=== PATIENT | female | born 1975 | race Hispanic/Latino ===

== ENCOUNTER 2021-06-09 11:58 | Emergency (ER) | payer MEDICARE ==
[2021-06-09 12:59] LABS: #Eosinphils 0.1 10x3/uL (0.0-0.5); #Monocytes 0.4 10x3/uL (0.0-1.1); #Neutrophils 4.9 10x3/uL (1.5-8.4); %Basophils 0.6 % (0.0-2.0); %Eosinophils 1.7 % (0.0-6.0); %Lymphocytes 24.9 % (18.0-47.0); %Monocytes 4.8 % (0.0-10.0); %Neutrophils 67.9 % (40.0-75.0); Hemoglobin 10.3 g/dL (12.0-15.5); Mean Corpuscular HGB CONC 31.8 g/dL (32.0-36.0); Mean Corpuscular Hemoglobin 31.7 pg (27.0-33.0); Mean Corpuscular Volume 99.7 fl (81.6-98.3); Mean Platelet Volume 11.3 fl (7.4-10.4); Platelet Count 204 10x3/uL (150-450); Red Blood Cell (RBC) Count 3.25 10x6/uL (3.90-5.03); White Blood Cell (WBC) Count 7.2 10x3/uL (3.5-10.5)
[2021-06-09 13:08] LABS: ALT (SGPT) 76 U/L (8-55); AST (SGOT) 119 U/L (5-34); Albumin 4.2 g/dL (3.5-5.0); Alkaline Phosphatase 177 U/L (40-110); Anion Gap 19 mmol/L (10-20); BUN (Urea Nitrogen) 49 mg/dL (7.0-18.7); Bilirubin, Total 0.4 mg/dL (0.2-1.2); Calc. Creatinine Clearance 0 mL/min (70-130); Calcium 7.9 mg/dL (7.8-10.44); Carbon Dioxide 19 mmol/L (22-29); Chloride 104 mmol/L (98-107); Globulin 3.2 g/dL (2.4-3.5); Glucose 158 mg/dL (70-105); Potassium 5.1 mmol/L (3.5-5.1); Protein, Total 7.4 g/dL (6.0-8.3); Sodium 137 mmol/L (136-145)
== END 2021-06-09 15:24 | disposition left against medical advice (07) ==
LOC: CSHERS 11:58
DX: I95.9 Hypotension, unspecified (principal); E11.9 Type 2 diabetes mellitus without complications; I25.2 Old myocardial infarction; I48.91 Unspecified atrial fibrillation; K21.9 Gastro-esophageal reflux disease without esophagitis; I10 Essential (primary) hypertension; Z79.899 Other long term (current) drug therapy
CPT/HCPCS: 71045; 80053; 83605; 85025; 87040; 93005

== ENCOUNTER 2021-09-28 14:32 | Emergency (ER) | payer MEDICARE ==
[2021-09-28 16:27] LABS: #Eosinphils 0.1 10x3/uL (0.0-0.5); #Monocytes 0.7 10x3/uL (0.0-1.1); #Neutrophils 9.3 10x3/uL (1.5-8.4); %Basophils 0.3 % (0.0-2.0); %Eosinophils 0.7 % (0.0-6.0); %Lymphocytes 16.4 % (18.0-47.0); %Monocytes 5.6 % (0.0-10.0); %Neutrophils 76.8 % (40.0-75.0); Hemoglobin 10.5 g/dL (12.0-15.5); Mean Corpuscular HGB CONC 31.5 g/dL (32.0-36.0); Mean Corpuscular Volume 101.5 fl (81.6-98.3); Mean Platelet Volume 10.6 fl (7.4-10.4); Platelet Count 197 10x3/uL (150-450); RBC Distribution Width 13.6 % (11.5-14.5); Red Blood Cell (RBC) Count 3.28 10x6/uL (3.90-5.03); White Blood Cell (WBC) Count 12.2 10x3/uL (3.5-10.5)
[2021-09-28 16:39] LABS: ALT (SGPT) 22 U/L (8-55); AST (SGOT) 22 U/L (5-34); Albumin 4.3 g/dL (3.5-5.0); Alkaline Phosphatase 113 U/L (40-110); Anion Gap 20 mmol/L (10-20); BUN (Urea Nitrogen) 35 mg/dL (7.0-18.7); Bilirubin, Total 0.4 mg/dL (0.2-1.2); Calc. Creatinine Clearance 0 mL/min (70-130); Calcium 8.3 mg/dL (7.8-10.44); Carbon Dioxide 24 mmol/L (22-29); Chloride 97 mmol/L (98-107); Globulin 3.4 g/dL (2.4-3.5); Glucose 116 mg/dL (70-105); Potassium 5.6 mmol/L (3.5-5.1); Protein, Total 7.7 g/dL (6.0-8.3); Sodium 135 mmol/L (136-145)
[2021-09-28] MEDS ORDERED: Morphine 4 MG/ML VIAL ONE ×3 (16:39→16:42)
== END 2021-09-28 18:22 | disposition home or self-care (01) ==
LOC: CSHERS 14:32
DX: K04.7 Periapical abscess without sinus (principal); E11.621 Type 2 diabetes mellitus with foot ulcer; N18.6 End stage renal disease; I12.0 Hypertensive chronic kidney disease with stage 5 chronic kidney disease or end stage renal disease; K21.9 Gastro-esophageal reflux disease without esophagitis; I25.2 Old myocardial infarction; I48.91 Unspecified atrial fibrillation; Z86.73 Personal history of transient ischemic attack (TIA), and cerebral infarction without residual deficits; Z99.2 Dependence on renal dialysis
CPT/HCPCS: 36415; 80053; 83605; 85025; 86140; 93005; 96374; J2270

== ENCOUNTER 2022-01-26 18:52 | Inpatient (IN) | payer MEDICARE ==
[2022-01-26 19:38] LABS: #Monocytes 0.3 10x3/uL (0.0-1.1); #Neutrophils 4.4 10x3/uL (1.5-8.4); %Basophils 0.6 % (0.0-2.0); %Eosinophils 0.6 % (0.0-6.0); %Lymphocytes 8.1 % (18.0-47.0); %Monocytes 6.2 % (0.0-10.0); %Neutrophils 84.1 % (40.0-75.0); Hemoglobin 10.8 g/dL (12.0-15.5); Mean Corpuscular Hemoglobin 30.4 pg (27.0-33.0); Mean Corpuscular Volume 95.2 fl (81.6-98.3); Mean Platelet Volume 10.9 fl (7.4-10.4); Platelet Count 183 10x3/uL (150-450); RBC Distribution Width 15.6 % (11.5-14.5); Red Blood Cell (RBC) Count 3.55 10x6/uL (3.90-5.03); White Blood Cell (WBC) Count 5.2 10x3/uL (3.5-10.5)
[2022-01-26 19:52] LABS: ALT (SGPT) 17 U/L (8-55); AST (SGOT) 27 U/L (5-34); Alkaline Phosphatase 296 U/L (40-110); Anion Gap 16 mmol/L (10-20); BUN (Urea Nitrogen) 14 mg/dL (7.0-18.7); Bilirubin, Total 0.7 mg/dL (0.2-1.2); Calc. Creatinine Clearance 0 mL/min (70-130); Calcium 9.1 mg/dL (7.8-10.44); Carbon Dioxide 30 mmol/L (22-29); Chloride 95 mmol/L (98-107); Globulin 3.9 g/dL (2.4-3.5); Glucose 94 mg/dL (70-105); Potassium 5.1 mmol/L (3.5-5.1); Protein, Total 7.9 g/dL (6.0-8.3); Sodium 136 mmol/L (136-145)
[2022-01-26 20:08] LABS: Bilirubin Neg (Negative); Blood, Urine Negative (Negative); Clarity Clear (Clear); Glucose, Urine (Dipstick) Normal (Negative); Ketone, Urine Negative (Negative); Leukocyte 25 (Negative); Nitrite Negative (Negative); Protein, Urine (Dipstick) 500 mg/dl (Neg-Trace); Urobilinogen Normal mg/dL (Less than 2)
[2022-01-26] MEDS ORDERED: Acetaminophen 500 MG TAB ONE (20:18)
[2022-01-26] MEDS ORDERED: Piperacillin/Tazobactam 3.375 GM VIAL ONE (20:18)
[2022-01-26 20:25] LABS: Bacteria/HPF 4+ HPF (None Seen); RBC/HPF None Seen HPF (0-3)
[2022-01-26 20:56] LABS: SARS-CoV-2 NAA Rapid Test DETECTED (NotDetected)
[2022-01-26] MEDS ORDERED: Acetaminophen 325 MG TAB PO PRN (22:22)
[2022-01-26] MEDS ORDERED: Dextrose 50% Abboject 50 ML SYRINGE SLOW IVP PRN (22:22)
[2022-01-26] MEDS ORDERED: HumaLOG 300 UNITS/3 ML VIAL SC PRN (22:22)
[2022-01-26] MEDS ORDERED: Dextrose 5% in Water 1,000 ML IV PRN (22:22)
[2022-01-26] MEDS ORDERED: Calcium Carbonate 500 MG ChewTAB PO PRN (22:22)
[2022-01-26] MEDS ORDERED: Senokot S 8.6-50 MG TAB PO PRN (22:22)
[2022-01-26] MEDS ORDERED: Guaifenesin DM 100-10/5 ML UDCUP PO PRN (22:22)
[2022-01-26] MEDS ORDERED: Ondansetron PF 4 MG/2 ML Vial IVP PRN (22:22)
[2022-01-26] MEDS ORDERED: traZODone HCl 50 MG TAB PO PRN (22:27)
[2022-01-26] MEDS ORDERED: hydrALAZINE 20 MG/ML VIAL ONE (22:38)
[2022-01-26] MEDS ORDERED: hydrALAZINE 20 MG/ML VIAL SLOW IVP PRN (22:49)
[2022-01-27] MEDS ORDERED: hydrALAZINE 20 MG/ML VIAL ONE ×4 (00:08→05:22)
[2022-01-27] MEDS ORDERED: Ibuprofen 200 MG TAB ONE (00:10)
[2022-01-27] MEDS ORDERED: Nitroglycerin 2% Ointment 1 INCH/1 GM Packet ONE (02:15)
[2022-01-27 05:48] LABS: #Monocytes 0.3 10x3/uL (0.0-1.1); %Basophils 0.5 % (0.0-2.0); %Eosinophils 0.2 % (0.0-6.0); %Lymphocytes 22.5 % (18.0-47.0); %Monocytes 7.7 % (0.0-10.0); %Neutrophils 68.9 % (40.0-75.0); Hemoglobin 9.9 g/dL (12.0-15.5); Mean Corpuscular HGB CONC 32.9 g/dL (32.0-36.0); Mean Corpuscular Volume 94.4 fl (81.6-98.3); Mean Platelet Volume 10.9 fl (7.4-10.4); Platelet Count 149 10x3/uL (150-450); RBC Distribution Width 15.9 % (11.5-14.5); Red Blood Cell (RBC) Count 3.19 10x6/uL (3.90-5.03); White Blood Cell (WBC) Count 4.3 10x3/uL (3.5-10.5)
[2022-01-27] MEDS ORDERED: Labetalol HCl 100 MG/20 ML VIAL ONE (05:53)
[2022-01-27 06:00] LABS: Anion Gap 19 mmol/L (10-20); BUN (Urea Nitrogen) 20 mg/dL (7.0-18.7); Calc. Creatinine Clearance 0 mL/min (70-130); Calcium 8.5 mg/dL (7.8-10.44); Carbon Dioxide 27 mmol/L (22-29); Chloride 97 mmol/L (98-107); Glucose 92 mg/dL (70-105); Potassium 4.7 mmol/L (3.5-5.1); Sodium 138 mmol/L (136-145)
[2022-01-27] MEDS ORDERED: Acetaminophen 500 MG TAB ONE (06:11)
[2022-01-27] MEDS ORDERED: Aspirin Chewable 81 MG TAB ONE (08:24)
[2022-01-27] MEDS ORDERED: Clopidogrel Bisulfate 75 MG TAB ONE (08:24)
[2022-01-27] MEDS ORDERED: Carvedilol 25 MG TAB ONE (08:26)
[2022-01-27] MEDS ORDERED: Famotidine 20 MG TAB ONE (08:26)
[2022-01-27] MEDS: Carvedilol 25 MG TAB PO SCH ×2 (08:29→16:00)
[2022-01-27] MEDS: Escitalopram Oxalate 20 mg Tablet PO SCH (08:37)
[2022-01-27] MEDS: Clopidogrel Bisulfate 75 MG TAB PO SCH (08:37)
[2022-01-27] MEDS: Aspirin Chewable 81 MG TAB PO SCH (08:37)
[2022-01-27] MEDS: Famotidine 20 MG TAB PO SCH (08:37)
[2022-01-27] MEDS: NIFEdipine XL 60 MG TAB PO SCH (08:38)
[2022-01-27] MEDS: Magnesium Oxide 250 MG TAB PO SCH ×2 (08:38→22:20)
[2022-01-27] MEDS ORDERED: Cefepime 1 GM in Sodium Chloride 0.9% 100 ML IVPB SCH (09:00)
[2022-01-27] MEDS ORDERED: Cefepime 1 GM VIAL ONE (09:29)
[2022-01-27] MEDS ORDERED: Vancomycin Dialysis Sliding Scale (Wt > 99) FS SCH (10:30)
[2022-01-27] MEDS ORDERED: Labetalol HCl 100 MG/20 ML VIAL SLOW IVP PRN (10:50)
[2022-01-27] MEDS ORDERED: Amlodipine 5 MG TAB ONE (10:50)
[2022-01-27] MEDS ORDERED: hydrALAZINE 25 MG TAB ONE (10:51)
[2022-01-27] MEDS ORDERED: hydrALAZINE 20 MG/ML VIAL SLOW IVP PRN (10:51)
[2022-01-27] MEDS: hydrALAZINE 25 MG TAB PO SCH ×3 (10:53→20:37)
[2022-01-27] MEDS ORDERED: Amlodipine 5 MG TAB PO SCH (11:00)
[2022-01-27] MEDS ORDERED: Vancomycin HCl 1 GM in Sodium Chloride 0.9% 250 ML 250 ML IVPB SCH (11:30)
[2022-01-27 12:47] LABS: Hemoglobin A1c 5.2 % (4.0-6.0)
[2022-01-27] MEDS: Heparin 5,000 UNITS/ML VIAL SC SCH ×3 (14:57→20:37)
[2022-01-27 15:00] VITALS: BMI 32.3
[2022-01-27] MEDS ORDERED: Diltiazem 125 MG in Sodium Chloride 0.9% 100 ML IVPB SCH (16:15)
[2022-01-27] MEDS ORDERED: HumaLOG 300 UNITS/3 ML VIAL SC PRN (16:50)
[2022-01-27] MEDS ORDERED: Dextrose 50% Abboject 50 ML SYRINGE SLOW IVP PRN (16:50)
[2022-01-27] MEDS ORDERED: Dextrose 5% in Water 1,000 ML IV PRN (16:50)
[2022-01-27] MEDS: Atorvastatin Calcium 40 MG TAB PO SCH (20:35)
[2022-01-27] MEDS: Lantus 1000 UNITS/10 ML VIAL SC SCH (20:36)
[2022-01-27] MEDS ORDERED: tiZANidine HCl 4 MG TAB PO SCH (22:15)
[2022-01-27] MEDS ORDERED: Gabapentin 300 MG CAP PO SCH (22:15)
[2022-01-28] MEDS: Carvedilol 25 MG TAB PO SCH ×2 (06:56→16:31)
[2022-01-28 07:43] LABS: Vancomycin, Random 8.2 ug/mL (See Comment)
[2022-01-28] MEDS ORDERED: Heparin 10,000 UNITS/ 10 ML VIAL SLOW IVP PRN (08:59)
[2022-01-28] MEDS ORDERED: EPOETIN ALFA-EPBX (ESRD) 3,000 UNIT/ML VIAL IVP PRN (09:00)
[2022-01-28] MEDS ORDERED: Cefepime 0.5 GM in Sodium Chloride 0.9% 100 ML IVPB SCH (09:00)
[2022-01-28] MEDS ORDERED: EPOETIN ALFA-EPBX (ESRD) 3,000 UNIT/ML VIAL IVP SCH (09:00)
[2022-01-28] MEDS ORDERED: Lidocaine 2% Jelly 5 ML TUBE TOP SCH (13:00)
[2022-01-28] MEDS: Escitalopram Oxalate 20 mg Tablet PO SCH (13:48)
[2022-01-28] MEDS: Aspirin Chewable 81 MG TAB PO SCH (13:48)
[2022-01-28] MEDS: hydrALAZINE 25 MG TAB PO SCH ×3 (13:48→21:46)
[2022-01-28] MEDS: Gabapentin 300 MG CAP PO SCH ×3 (13:49→21:47)
[2022-01-28] MEDS: NIFEdipine XL 60 MG TAB PO SCH (13:51)
[2022-01-28] MEDS: Famotidine 20 MG TAB PO SCH (13:52)
[2022-01-28] MEDS: Clopidogrel Bisulfate 75 MG TAB PO SCH (13:52)
[2022-01-28] MEDS: Heparin 5,000 UNITS/ML VIAL SC SCH ×3 (13:53→22:23)
[2022-01-28] MEDS: Magnesium Oxide 250 MG TAB PO SCH ×2 (13:54→21:46)
[2022-01-28] MEDS: tiZANidine HCl 4 MG TAB PO SCH ×3 (13:56→21:45)
[2022-01-28] MEDS ORDERED: traZODone HCl 50 MG TAB PO PRN (14:02)
[2022-01-28] MEDS: HYDROcodone/Acetaminophen 5/325 mg Tablet PO PRN ×2 (14:53→18:55)
[2022-01-28] MEDS: Morphine 4 MG/ML VIAL SLOW IVP PRN ×2 (16:30→21:48)
[2022-01-28] MEDS: Cefepime 0.5 GM in Sodium Chloride 0.9% 100 ML IVPB SCH (16:31)
[2022-01-28] MEDS ORDERED: VANCOMYCIN 1.25 GM/250 ML BAG 1.25 GM in Premix Bag 1 BAG IVPB SCH (17:00)
[2022-01-28] MEDS: Atorvastatin Calcium 40 MG TAB PO SCH (21:46)
[2022-01-28] MEDS: Lantus 1000 UNITS/10 ML VIAL SC SCH (21:47)
[2022-01-29] MEDS: Morphine 4 MG/ML VIAL SLOW IVP PRN ×4 (03:47→21:41)
[2022-01-29] MEDS: HYDROcodone/Acetaminophen 5/325 mg Tablet PO PRN ×3 (05:02→17:49)
[2022-01-29 05:31] LABS: #Monocytes 0.3 10x3/uL (0.0-1.1); %Basophils 0.6 % (0.0-2.0); %Eosinophils 1.2 % (0.0-6.0); %Lymphocytes 30.6 % (18.0-47.0); %Monocytes 8.2 % (0.0-10.0); %Neutrophils 59.1 % (40.0-75.0); Hemoglobin 9.4 g/dL (12.0-15.5); Mean Corpuscular HGB CONC 30.8 g/dL (32.0-36.0); Mean Corpuscular Hemoglobin 30.1 pg (27.0-33.0); Mean Corpuscular Volume 97.8 fl (81.6-98.3); Mean Platelet Volume 11.4 fl (7.4-10.4); Platelet Count 166 10x3/uL (150-450); RBC Distribution Width 15.7 % (11.5-14.5); Red Blood Cell (RBC) Count 3.12 10x6/uL (3.90-5.03); White Blood Cell (WBC) Count 3.4 10x3/uL (3.5-10.5)
[2022-01-29 05:49] LABS: Anion Gap 18 mmol/L (10-20); BUN (Urea Nitrogen) 19 mg/dL (7.0-18.7); Calc. Creatinine Clearance 31 mL/min (70-130); Calcium 8.1 mg/dL (7.8-10.44); Carbon Dioxide 25 mmol/L (22-29); Chloride 95 mmol/L (98-107); Estimated GFR 15; Glucose 131 mg/dL (70-105); Magnesium 1.9 mg/dL (1.6-2.6); Potassium 4.4 mmol/L (3.5-5.1); Sodium 134 mmol/L (136-145)
[2022-01-29] MEDS: Carvedilol 25 MG TAB PO SCH ×2 (09:55→17:49)
[2022-01-29] MEDS: Gabapentin 300 MG CAP PO SCH ×3 (09:56→21:42)
[2022-01-29] MEDS: Escitalopram Oxalate 20 mg Tablet PO SCH (09:56)
[2022-01-29] MEDS: Aspirin Chewable 81 MG TAB PO SCH (09:56)
[2022-01-29] MEDS: Famotidine 20 MG TAB PO SCH (09:56)
[2022-01-29] MEDS: hydrALAZINE 25 MG TAB PO SCH ×3 (09:57→21:44)
[2022-01-29] MEDS: Magnesium Oxide 250 MG TAB PO SCH ×2 (09:57→21:42)
[2022-01-29] MEDS: Clopidogrel Bisulfate 75 MG TAB PO SCH (09:57)
[2022-01-29] MEDS: tiZANidine HCl 4 MG TAB PO SCH ×3 (09:58→21:42)
[2022-01-29] MEDS: NIFEdipine XL 60 MG TAB PO SCH (09:58)
[2022-01-29] MEDS: Heparin 5,000 UNITS/ML VIAL SC SCH ×3 (09:59→21:40)
[2022-01-29] MEDS: Cefepime 0.5 GM in Sodium Chloride 0.9% 100 ML IVPB SCH (15:32)
[2022-01-29] MEDS: Atorvastatin Calcium 40 MG TAB PO SCH (21:42)
[2022-01-29] MEDS: Lantus 1000 UNITS/10 ML VIAL SC SCH (21:44)
[2022-01-30] MEDS: HYDROcodone/Acetaminophen 5/325 mg Tablet PO PRN ×2 (02:01→07:28)
[2022-01-30 04:46] LABS: #Eosinphils 0.1 10x3/uL (0.0-0.5); #Monocytes 0.4 10x3/uL (0.0-1.1); #Neutrophils 2.7 10x3/uL (1.5-8.4); %Basophils 0.4 % (0.0-2.0); %Eosinophils 2.2 % (0.0-6.0); %Lymphocytes 33.5 % (18.0-47.0); %Neutrophils 54.5 % (40.0-75.0); Anion Gap 19 mmol/L (10-20); BUN (Urea Nitrogen) 27 mg/dL (7.0-18.7); Calc. Creatinine Clearance 25 mL/min (70-130); Carbon Dioxide 24 mmol/L (22-29); Chloride 91 mmol/L (98-107); Estimated GFR 11; Glucose 74 mg/dL (70-105); Hemoglobin 9.7 g/dL (12.0-15.5); Mean Corpuscular HGB CONC 32.4 g/dL (32.0-36.0); Mean Corpuscular Hemoglobin 30.9 pg (27.0-33.0); Mean Corpuscular Volume 95.2 fl (81.6-98.3); Mean Platelet Volume 10.6 fl (7.4-10.4); Platelet Count 179 10x3/uL (150-450); Potassium 5.8 mmol/L (3.5-5.1); RBC Distribution Width 15.2 % (11.5-14.5); Red Blood Cell (RBC) Count 3.14 10x6/uL (3.90-5.03); Sodium 128 mmol/L (136-145); White Blood Cell (WBC) Count 4.9 10x3/uL (3.5-10.5)
[2022-01-30] MEDS ORDERED: Pharmacy to Dose VANC & ABX IVPB PRN (07:22)
[2022-01-30 07:42] LABS: Vancomycin, Random 11.7 ug/mL (See Comment)
[2022-01-30] MEDS ORDERED: EPOETIN ALFA-EPBX (ESRD) 3,000 UNIT/ML VIAL IVP PRN (09:51)
[2022-01-30] MEDS ORDERED: EPOETIN ALFA-EPBX (ESRD) 4,000 UNIT/ML VIAL IVP PRN (10:00)
[2022-01-30] MEDS: hydrALAZINE 25 MG TAB PO SCH ×2 (11:22→16:13)
[2022-01-30] MEDS: NIFEdipine XL 60 MG TAB PO SCH (11:22)
[2022-01-30] MEDS: Carvedilol 25 MG TAB PO SCH ×2 (11:22→16:13)
[2022-01-30] MEDS: Heparin 5,000 UNITS/ML VIAL SC SCH ×2 (14:08→16:14)
[2022-01-30] MEDS: Escitalopram Oxalate 20 mg Tablet PO SCH (14:10)
[2022-01-30] MEDS: Aspirin Chewable 81 MG TAB PO SCH (14:10)
[2022-01-30] MEDS: Magnesium Oxide 250 MG TAB PO SCH (14:11)
[2022-01-30] MEDS: Famotidine 20 MG TAB PO SCH (14:11)
[2022-01-30] MEDS: tiZANidine HCl 4 MG TAB PO SCH ×2 (14:11→16:14)
[2022-01-30] MEDS: Gabapentin 300 MG CAP PO SCH ×2 (14:11→16:13)
[2022-01-30] MEDS: Clopidogrel Bisulfate 75 MG TAB PO SCH (14:11)
[2022-01-30] MEDS: Morphine 4 MG/ML VIAL SLOW IVP PRN (14:12)
[2022-01-30 15:01] LABS: Anion Gap 15 mmol/L (10-20); BUN (Urea Nitrogen) 14 mg/dL (7.0-18.7); Calc. Creatinine Clearance 42 mL/min (70-130); Calcium 8.6 mg/dL (7.8-10.44); Carbon Dioxide 27 mmol/L (22-29); Chloride 94 mmol/L (98-107); Estimated GFR 21; Glucose 89 mg/dL (70-105); Potassium 3.7 mmol/L (3.5-5.1); Sodium 132 mmol/L (136-145)
[2022-01-30] MEDS: Cefepime 0.5 GM in Sodium Chloride 0.9% 100 ML IVPB SCH (16:13)
[2022-01-30] MEDS ORDERED: Vancomycin HCl 1 GM in Sodium Chloride 0.9% 250 ML 250 ML IVPB SCH (17:00)
[2022-01-30 17:14] VITALS: BP 159/70; TEMP 97.9
== END 2022-01-30 17:59 | disposition home health service (06) | DRG 463 ==
LOC: CSHERS 18:52 → CSHERHOLD 23:53 → CSHTELE 01-27 13:40
PROVIDERS: ADMIT Family Medicine; ATTEND Family Medicine
PROC: 8E0ZXY6 Isolation (ICD-10-PCS; 2022-01-26)
PROC: 3E03329 Introduction of Other Anti-infective into Peripheral Vein, Percutaneous Approach (ICD-10-PCS; 2022-01-26)
PROC: 0JBN0ZZ Excision of Right Lower Leg Subcutaneous Tissue and Fascia, Open Approach (ICD-10-PCS; principal; 2022-01-28)
PROC: 5A1D70Z Performance of Urinary Filtration, Intermittent, Less than 6 Hours Per Day (ICD-10-PCS; 2022-01-28)
PROC: 5A1D70Z Performance of Urinary Filtration, Intermittent, Less than 6 Hours Per Day (ICD-10-PCS; 2022-01-30)
DX: T87.43 Infection of amputation stump, right lower extremity (principal); A41.89 Other specified sepsis; U07.1 COVID-19; N18.6 End stage renal disease; I12.0 Hypertensive chronic kidney disease with stage 5 chronic kidney disease or end stage renal disease; E87.1 Hypo-osmolality and hyponatremia; E11.22 Type 2 diabetes mellitus with diabetic chronic kidney disease; I25.10 Atherosclerotic heart disease of native coronary artery without angina pectoris; I48.0 Paroxysmal atrial fibrillation; G89.29 Other chronic pain; K21.9 Gastro-esophageal reflux disease without esophagitis; I16.0 Hypertensive urgency; Y83.8 Other surgical procedures as the cause of abnormal reaction of the patient, or of later complication, without mention of misadventure at the time of the procedure; D63.1 Anemia in chronic kidney disease; E11.42 Type 2 diabetes mellitus with diabetic polyneuropathy; E66.01 Morbid (severe) obesity due to excess calories; I25.2 Old myocardial infarction; Z88.8 Allergy status to other drugs, medicaments and biological substances; Z91.040 Latex allergy status; Z79.4 Long term (current) use of insulin; Z99.2 Dependence on renal dialysis; Z79.899 Other long term (current) drug therapy; Z95.5 Presence of coronary angioplasty implant and graft; Z90.49 Acquired absence of other specified parts of digestive tract; Z98.51 Tubal ligation status; Z87.891 Personal history of nicotine dependence; Z79.82 Long term (current) use of aspirin; Z89.511 Acquired absence of right leg below knee; Z86.73 Personal history of transient ischemic attack (TIA), and cerebral infarction without residual deficits; Z68.32 Body mass index [BMI] 32.0-32.9, adult
CPT/HCPCS: 36415; 36416; 70450; 71045; 80048; 80053; 80202; 81003; 81015; 83036; 83605; 83735; 83880; 84484; 85025; 87040; 87070; 87077; 87086; 87149; 87186; 87205; 90935; 93005; 96365; 96366; 96367; 96375; 96376; 97139; G0257; J0360; J0692; J1644; J1815; J2270; J2405; J2543; J3370; J3490; Q5105

== ENCOUNTER 2023-01-17 09:58 | Emergency (ER) | payer MEDICARE ==
[2023-01-17 11:58] LABS: #Basophils 0.1 10x3/uL (0.0-0.2); #Eosinphils 0.1 10x3/uL (0.0-0.5); #Monocytes 0.4 10x3/uL (0.0-1.1); #Neutrophils 4.9 10x3/uL (1.5-8.4); %Basophils 0.9 % (0.0-2.0); %Eosinophils 1.3 % (0.0-6.0); %Lymphocytes 22.7 % (18.0-47.0); %Monocytes 5.4 % (0.0-10.0); %Neutrophils 69.4 % (40.0-75.0); Hemoglobin 11.6 g/dL (12.0-15.5); Mean Corpuscular HGB CONC 31.1 g/dL (32.0-36.0); Mean Corpuscular Hemoglobin 31.5 pg (27.0-33.0); Mean Corpuscular Volume 101.4 fl (81.6-98.3); Mean Platelet Volume 10.6 fl (7.4-10.4); Platelet Count 241 10x3/uL (150-450); RBC Distribution Width 13.2 % (11.5-14.5); Red Blood Cell (RBC) Count 3.68 10x6/uL (3.90-5.03)
[2023-01-17 12:01] LABS: Bilirubin Neg (Negative); Blood, Urine Negative (Negative); Clarity Clear (Clear); Glucose, Urine (Dipstick) 100 mg/dL (Negative); Ketone, Urine Negative (Negative); Leukocyte 25 (Negative); Nitrite Negative (Negative); Protein, Urine (Dipstick) 100 mg/dl (Neg-Trace); Specific Gravity, Urine 1.015 (1.005-1.030); Urobilinogen Normal mg/dL (Less than 2)
[2023-01-17 12:06] LABS: PTT 26.6 sec (22.0-33.0); Prothrombin Time 10.3 sec (9.5-12.1)
[2023-01-17 12:12] LABS: CAUTI Indications for Culture Alt mental st,lethar; Squamous Epithelial 0-3 HPF (0-3)
[2023-01-17 12:13] LABS: Bacteria/HPF 1+ HPF (None Seen); RBC/HPF 0-3 HPF (0-3); Transitional Epithelial 0-3 HPF (None Seen)
[2023-01-17 12:14] LABS: Urine Culture Reflex No No
[2023-01-17 12:16] LABS: ALT (SGPT) 37 U/L (8-55); AST (SGOT) 51 U/L (5-34); Albumin 4.2 g/dL (3.5-5.0); Alkaline Phosphatase 275 U/L (40-110); Anion Gap 18 mmol/L (10-20); BUN (Urea Nitrogen) 37 mg/dL (7.0-18.7); Bilirubin, Total 0.6 mg/dL (0.2-1.2); Calc. Creatinine Clearance 0 mL/min (70-130); Calcium 9.1 mg/dL (7.8-10.44); Carbon Dioxide 28 mmol/L (22-29); Chloride 96 mmol/L (98-107); Estimated GFR 8; Globulin 4.3 g/dL (2.4-3.5); Glucose 155 mg/dL (70-105); Magnesium 1.9 mg/dL (1.6-2.6); Potassium 5.3 mmol/L (3.5-5.1); Protein, Total 8.5 g/dL (6.0-8.3); Sodium 137 mmol/L (136-145)
[2023-01-17] MEDS ORDERED: Acetaminophen 325 MG TAB ONE (12:49)
== END 2023-01-17 14:07 | disposition home or self-care (01) ==
LOC: CSHERS 09:58
DX: S00.03XA Contusion of scalp, initial encounter (principal); E87.5 Hyperkalemia; I13.2 Hypertensive heart and chronic kidney disease with heart failure and with stage 5 chronic kidney disease, or end stage renal disease; E11.22 Type 2 diabetes mellitus with diabetic chronic kidney disease; N18.6 End stage renal disease; I50.9 Heart failure, unspecified; F17.210 Nicotine dependence, cigarettes, uncomplicated; K21.9 Gastro-esophageal reflux disease without esophagitis; Z99.2 Dependence on renal dialysis; Z86.73 Personal history of transient ischemic attack (TIA), and cerebral infarction without residual deficits; W19.XXXA Unspecified fall, initial encounter
CPT/HCPCS: 36415; 36416; 70450; 71045; 72125; 80053; 81001; 83735; 83880; 84484; 85025; 85610; 85730; 93005

== ENCOUNTER 2023-02-09 11:53 | Emergency (ER) | payer MEDICARE ==
[2023-02-09] MEDS ORDERED: Acetaminophen 325 MG TAB ONE (12:22)
[2023-02-09] MEDS ORDERED: Lorazepam 1 MG TAB ONE (13:08)
== END 2023-02-09 14:00 | disposition home or self-care (01) ==
LOC: CSHERS 11:53
DX: R51.9 Headache, unspecified (principal); M54.2 Cervicalgia; K21.9 Gastro-esophageal reflux disease without esophagitis; E11.22 Type 2 diabetes mellitus with diabetic chronic kidney disease; N18.6 End stage renal disease; I12.9 Hypertensive chronic kidney disease with stage 1 through stage 4 chronic kidney disease, or unspecified chronic kidney disease; F17.210 Nicotine dependence, cigarettes, uncomplicated; Z99.2 Dependence on renal dialysis
CPT/HCPCS: 70450; 72125